=== PATIENT | female | born 1930 | race Caucasian/White ===

== ENCOUNTER 2017-09-25 15:34 | Emergency (ER) | payer MEDICARE, OTHER ==
[2017-09-25] MEDS ORDERED: Ketorolac 60 MG/2 ML SDV IM ONE (16:45)
--- NOTE | 2017-09-25 18:11 | EDM.PDOC ---
ED HPI GENERAL MEDICAL PROBLEM - General Chief Complaint: Back Pain or Injury Stated Complaint: BACK PAIN Time Seen by Provider: 09/25/17 15:59 Source of Information: Reports: Patient, Family History Limitations: Reports: No Limitations - History of Present Illness INITIAL COMMENTS - FREE TEXT/NARRATIVE: HISTORY AND PHYSICAL: []86-year-old female presenting with increased lower back pain History of Present Illness: []Has chronic history of back pain and spondylolisthesis The pain has worsened over the last 2 days having difficulty standing Denies any difficulty with voiding or bowel movements Review of Systems: As per history of present illness and below otherwise all systems reviewed and negative. Past medical history: As per history of present illness and as reviewed below otherwise noncontributory. Surgical history: As per history of present illness and as reviewed below otherwise noncontributory. Social history: No reported history of drug or alcohol abuse. Family history: As per history of present illness and as reviewed below otherwise noncontributory. Physical exam: Alert elderly female who is very pleasant and oriented. Speaking in full sentences without any shortness of breath pain is at the L4-5 HEENT: Atraumatic, normocehpalic, pupils reactive, negative for conjunctival pallor or scleral icterus, mucous membranes moist, throat clear, neck supple, nontender, trachea midline. Lungs: Clear to auscultation, breath sounds equal bilaterally, chest non tender. No step-offs noted Heart: S1S2, regular, negative for clicks, rubs, or JVD. Abdomen: Soft, nondistended, nontender. Negative for masses or hepatossplenmegaly. Negative for costovertebral tenderness. Pelvis: Stable nontender. Genitourinary: Deferred. Rectal: Deferred Extremities: Atraumatic, negative for cords or calf pain. Neurovascular unremarkable. Neuro: Awake, alert, oriented. Cranial nerves II through XII unremarkable. Cerebellum unremarkable. Motor and sensory unremarkable throughout. Exam nonfocal. Discussed with patient and granddaughter that no acute fractures are noted Diagnostics: [X-ray lumbar spine] Therapeutics: [] Impression: []Low back pain Plan: []Discharged home Follow up with your provider as previously scheduled Prescription written for Tylenol No. 3 one 3 times daily as needed for pain #30 no refill Return to the emergency room when necessary as discussed Definitive disposition and diagnosis as appropriate pending reevaluation and review of above. Onset: Gradual Duration: Day(s): Lower Back Pain Score (Numeric/FACES): 10 - Related Data Allergies Allergy/AdvReac Type Severity Reaction Status Date / Time No Known Allergies Allergy Verified 09/25/17 15:53 Home Meds: Home Meds Esomeprazole Magnesium [Nexium] 20 mg DAILY 09/25/17 [History] FLUoxetine HCl [Fluoxetine HCl] 10 mg DAILY 09/25/17 [History] Fluticasone Propionate [Flonase Allergy Relief] 1 spray DAILY PRN 09/25/17 [ History] Levothyroxine 112 mcg DAILY 09/25/17 [History] Losartan Potassium 50 mg DAILY 09/25/17 [History] Simvastatin [Zocor] 20 mg DAILY 09/25/17 [History] aMILoride/Hydrochlorothiazide [Amiloride-HCTZ 5-50 MG] 5 - 50 mg DAILY 09/25/17 [History] cycloSPORINE [Restasis] 1 each OP DAILY 09/25/17 [History] Past Medical History HEENT History: Reports: Cataract Cardiovascular History: Reports: Angina, High Cholesterol, Hypertension Musculoskeletal History: Reports: Arthritis, Back Pain, Chronic Endocrine/Metabolic History: Reports: Hypothyroidism Oncologic (Cancer) History: Reports: Non-Hodgkin's Lymphoma - Infectious Disease History Infectious Disease History: Reports: Chicken Pox, Hepatitis A - Past Surgical History HEENT Surgical History: Reports: Cataract Surgery, Tonsillectomy GI Surgical History: Reports: Appendectomy, Cholecystectomy, Hernia, Abdominal Female Surgical History: Reports: Section, Hysterectomy, Oophorectomy Endocrine Surgical History: Reports: Other (See Below) Other Endocrine Surgeries/Procedures: partial thyroidectomy Musculoskeletal Surgical History: Reports: Hip Replacement, Knee Replacement Other Musculoskeletal Surgeries/Procedures:: L knee / R hip Social & Family History - Family History Family Medical History: Noncontributory - Tobacco Use Smoking Status *Q: Former Smoker Used Tobacco, but Quit: Yes Month/Year Tobacco Last Used: 2001 - Caffeine Use Caffeine Use: Reports: Coffee - Recreational Drug Use Recreational Drug Use: No ED ROS GENERAL - Review of Systems Review Of Systems: ROS reveals no pertinent complaints other than HPI. ED EXAM,LOWER BACK PAIN/INJURY - Physical Exam Exam: See Below (see dictation) Course - Vital Signs Last Recorded V/S: Last Vital Signs Temp 36.5 C 09/25/17 15:50 Pulse 92 09/25/17 15:50 Resp 20 09/25/17 15:50 BP 176/82 H 09/25/17 15:50 Pulse Ox 97 09/25/17 15:50 - Orders/Labs/Meds Orders: Active Orders 24 hr Category Date Time Status Lumbar Spine 2 or 3V [CR] Stat Exams 09/25/17 16:45 Taken Meds: Medications Discontinued Medications Generic Name Dose Route Start Last Admin Trade Name Amara PRN Reason Stop Dose Admin Ketorolac Tromethamine 60 mg 09/25/17 16:45 09/25/17 16:57 Toradol IM 09/25/17 16:46 60 mg ONETIME ONE Administration Departure - Departure Time of Disposition: 18:09 Disposition: Home, Self-Care 01 Condition: Good Clinical Impression: Low back pain - Discharge Information Instructions: Back Pain, Adult, [id number] Referrals: Gabriela Gutierrez DO [Primary Care Provider] - Additional Instructions: The following information is given to patients seen in the emergency department who are being discharged to home. This information is to outline your options for follow-up care. We provide all patients seen in our emergency department with a follow-up referral. The need for follow-up, as well as the timing and circumstances, are variable depending upon the specifics of your emergency department visit. If you don't have a primary care physician on staff, we will provide you with a referral. We always advise you to contact your personal physician following an emergency department visit to inform them of the circumstance of the visit and for follow-up with them and/or the need for any referrals to a consulting specialist. The emergency department will also refer you to a specialist when appropriate. This referral assures that you have the opportunity for followup care with a specialist. All of these measure are taken in an effort to provide you with optimal care, which includes your followup. Under all circumstances we always encourage you to contact your private physician who remains a resource for coordinating your care. When calling for followup care, please make the office aware that this follow-up is from your recent emergency room visit. If for any reason you are refused follow-up, please contact the [facility] emergency department at and asked to speak to the emergency department charge nurse. Follow-up with Dr. Nardozi as scheduled Prescription written for Tylenol No. 3 one 3 times a day when necessary pain # 30 no refill Return to ER for reevaluation and when necessary as discussed - My Orders Last 24 Hours: My Active Orders 09/25/17 16:45 Lumbar Spine 2 or 3V [CR] Stat - Assessment/Plan Last 24 Hours: My Active Orders 09/25/17 16:45 Lumbar Spine 2 or 3V [CR] Stat
--- NOTE | 2017-09-26 10:09 | CR ---
EXAM DATE: 09/25/17 PATIENT'S AGE: 86 Patient: SUNDAR BAUER Facility: [place], [place] Site . Site : [id number] Study: XRay Spine Lumbar [id number]/26/2018 5:29:11 PM Ordering Physician: Doctor Marvin Final Report: INDICATION: Chronic back pain TECHNIQUE: Lumbar spine 3 view COMPARISON: None FINDINGS: Bones: Alignment is normal. No fractures or significant bone lesions. There is osteoporosis. Joints: Advanced disc space narrowing is present at all levels. Moderate facet joint spondylosis is in the lower lumbar spine. Soft tissues: Aortic atherosclerosis. IMPRESSION: No acute findings. There is diffuse moderate degenerative spondylosis. Dictated by Frantz Adame MD @ Sep 25 2017 5:55PM (Electronic Signature) Report Signed by Proxy. ROGER
== END 2017-09-25 18:19 | disposition home or self-care (01) ==
LOC: MW.ED 15:34
DX: M54.5 Low back pain (principal); I10 Essential (primary) hypertension; E78.00 Pure hypercholesterolemia, unspecified; E03.9 Hypothyroidism, unspecified; Z79.899 Other long term (current) drug therapy; Z87.891 Personal history of nicotine dependence
CPT/HCPCS: 72100; 96372; 99283; J1885

== ENCOUNTER 2019-08-28 10:45 | Observation (INO) | payer MEDICARE, OTHER ==
[2019-08-28] MEDS ORDERED: Sodium Chloride 0.9% 10 ML Syringe FLUSH PRN (11:04)
[2019-08-28] MEDS ORDERED: Sodium Chloride 0.9% 2.5 ML Syringe FLUSH PRN (11:04)
[2019-08-28 11:58] LABS: BLOOD UREA NITROGEN,BUN 43 mg/dL (7.0-18.0); CARBON DIOXIDE,CO2 26.2 mmol/L (21.0-32.0); CHLORIDE,CL 106 mmol/L (98-107); GLUCOSE RANDOM 132 mg/dL (74-106); LIPASE 147 U/L (73-393); SODIUM,NA 145 mmol/L (136-145)
--- NOTE | 2019-08-28 11:59 | EDM.PDOC ---
ED HPI GENERAL MEDICAL PROBLEM - General Chief Complaint: Gastrointestinal Problem Stated Complaint: FEELS LIKE FAINTING, LG BLACK BM Time Seen by Provider: 08/28/19 11:31 Source of Information: Reports: Patient History Limitations: Reports: No Limitations - History of Present Illness INITIAL COMMENTS - FREE TEXT/NARRATIVE: This 88 year old female is admitted to the ED with a chief complaint of passing black stools this morning times 3. She denies any other complaints at this time. No chest pain, SOB or abdominal discomfort. Her last colonoscopy was more than 10 years ago. Onset: Today (Black stools since this morning times 3) Location: Reports: Other (No abdominal pain) Severity: Mild - Related Data Allergies Allergy/AdvReac Type Severity Reaction Status Date / Time No Known Allergies Allergy Verified 08/28/19 11:03 Home Meds: Home Meds Esomeprazole Magnesium [Nexium] 20 mg DAILY 09/25/17 [History] FLUoxetine HCl [Fluoxetine HCl] 10 mg DAILY 09/25/17 [History] Fluticasone Propionate [Flonase Allergy Relief] 1 spray DAILY PRN 09/25/17 [ History] Levothyroxine 112 mcg DAILY 09/25/17 [History] Simvastatin [Zocor] 20 mg DAILY 09/25/17 [History] aMILoride/Hydrochlorothiazide [Amiloride-HCTZ 5-50 MG] 5 - 50 mg PO DAILY [History] cycloSPORINE [Restasis] 1 each OP DAILY 09/25/17 [History] Acetaminophen [Tylenol Arthritis] 1,300 mg PO DAILY 08/28/19 [History] Ascorbate Calcium [Vitamin C] 1,000 mg PO DAILY 08/28/19 [History] Aspirin 81 mg PO DAILY 08/28/19 [History] Celecoxib [CeleBREX] 200 mg PO DAILY 08/28/19 [History] Cholecalciferol (Vitamin D3) [Vitamin D3] 2,000 unit PO DAILY 08/28/19 [History] Fish Oil/[place]-3 Fatty Acids [Fish Oil 1,000 MG] 1 tab PO DAILY 08/28/19 [ History] Loperamide [Imodium] 1 tab PO ASDIRECTED 08/28/19 [History] Magnesium 250 mg PO DAILY 08/28/19 [History] Mv-Mn/FA/Vit K/Lycop/Lut/Zeaxa [Ocuvite Eye + Multi Tablet] 1 tab PO DAILY 08/28 [History] Psyllium [Metamucil] 1 cap PO ASDIRECTED 08/28/19 [History] Past Medical History HEENT History: Reports: Cataract Cardiovascular History: Reports: Angina, High Cholesterol, Hypertension Respiratory History: Reports: None Gastrointestinal History: Reports: Chronic Constipation, Chronic Diarrhea, Hemorrhoids Genitourinary History: Reports: None ESCROW CLOSER History: Reports: None Musculoskeletal History: Reports: Arthritis, Back Pain, Chronic Neurological History: Reports: None Psychiatric History: Reports: Depression Endocrine/Metabolic History: Reports: Hypothyroidism Hematologic History: Reports: None Immunologic History: Reports: None Oncologic (Cancer) History: Reports: Non-Hodgkin's Lymphoma Dermatologic History: Reports: Seborrheic Dermatitis - Infectious Disease History Infectious Disease History: Reports: Chicken Pox, Hepatitis A - Past Surgical History Head Surgeries/Procedures: Reports: None HEENT Surgical History: Reports: Cataract Surgery, Tonsillectomy Cardiovascular Surgical History: Reports: None Respiratory Surgical History: Reports: None GI Surgical History: Reports: Appendectomy, Cholecystectomy, Hernia, Abdominal Female Surgical History: Reports: Section, Hysterectomy, Oophorectomy Endocrine Surgical History: Reports: Other (See Below) Other Endocrine Surgeries/Procedures: partial thyroidectomy Neurological Surgical History: Reports: None Musculoskeletal Surgical History: Reports: Hip Replacement, Knee Replacement Other Musculoskeletal Surgeries/Procedures:: L knee / R hip Oncologic Surgical History: Reports: None Dermatological Surgical History: Reports: None Social & Family History - Family History Family Medical History: Noncontributory - Tobacco Use Smoking Status *Q: Former Smoker Used Tobacco, but Quit: Yes Month/Year Tobacco Last Used: 2001 - Caffeine Use Caffeine Use: Reports: None - Recreational Drug Use Recreational Drug Use: No ED ROS GENERAL - Review of Systems Review Of Systems: See Below Constitutional: Reports: No Symptoms HEENT: Reports: No Symptoms Respiratory: Reports: No Symptoms Cardiovascular: Reports: No Symptoms Endocrine: Reports: No Symptoms GI/Abdominal: Reports: Hematemesis (passing black stools) : Reports: No Symptoms Musculoskeletal: Reports: No Symptoms Skin: Reports: No Symptoms Neurological: Reports: No Symptoms Hematologic/Lymphatic: Reports: No Symptoms ED EXAM, GI/ABD - Physical Exam Exam: See Below Exam Limited By: No Limitations General Appearance: Alert, WD/WN, No Apparent Distress Eyes: Bilateral: Normal Appearance, EOMI Ears: Normal External Exam, Normal Canal, Hearing Grossly Normal, Normal TMs Nose: Normal Inspection, Normal Mucosa, No Blood Throat/Mouth: Normal Inspection, Normal Lips, Normal Teeth, Normal Gums, Normal Oropharynx, Normal Voice, No Airway Compromise Head: Atraumatic, Normocephalic Neck: Normal Inspection, Supple, Non-Tender, Full Range of Motion Respiratory/Chest: No Respiratory Distress, Other (intestinal sounds are noted in the mid chest. She has a history of hiatal hernia) GI/Abdominal Exam: Normal Bowel Sounds, Soft, Non-Tender, No Organomegaly. No: Mass (Female) Exam: Deferred Rectal (Female) Exam: Black Stool, Heme + Stool (Heme test is grossly positive) , Hemorrhoids (external hemorrhoids noted.) Back Exam: Normal Inspection Extremities: Normal Inspection, Normal Range of Motion, No Pedal Edema Neurological: Alert, Oriented, CN II-XII Intact, Normal Cognition Psychiatric: Normal Affect, Normal Mood Skin Exam: Warm, Dry, Intact, Normal Color, No Rash Course - Vital Signs Text/Narrative:: I talked with Dr. Holden at 1:54PM. She will be admitted for GI bleed. The patient and the daughter agrees with the admission plan. Last Recorded V/S: Last Vital Signs Temp 96.8 F L 08/28/19 11:01 Pulse 115 H 08/28/19 11:01 Resp 18 08/28/19 11:01 BP 116/50 L 08/28/19 11:01 Pulse Ox 95 08/28/19 11:01 - Orders/Labs/Meds Orders: Active Orders 24 hr Category Date Time Status Cardiac Monitoring [RC] . DIRECTED Care 08/28/19 11:04 Active EKG Documentation Completion [RC] STAT Care 08/28/19 11:04 Active CULTURE URINE [RM] Stat Lab 08/28/19 13:34 Received Sodium Chloride 0.9% [Saline Flush] Med 08/28/19 11:04 Active 10 ml FLUSH ASDIRECTED PRN Sodium Chloride 0.9% [Saline Flush] Med 08/28/19 11:04 Active 2.5 ml FLUSH ASDIRECTED PRN Saline Lock Insert [OM.PC] Stat Oth 08/28/19 11:04 Ordered Medication Orders Sodium Chloride (Saline Flush) 10 ml FLUSH ASDIRECTED PRN PRN Reason: Keep Vein Open Sodium Chloride (Saline Flush) 2.5 ml FLUSH ASDIRECTED PRN PRN Reason: Keep Vein Open Labs: Laboratory Tests 08/28/19 08/28/19 08/28/19 Range/Units 11:23 11:23 13:34 WBC 9.63 (4.0-11.0) K/uL RBC 4.82 (4.30-5.90) M/uL Hgb 14.8 (12.0-16.0) g/dL Hct 46.3 H (36.0-46.0) % MCV 96.1 (80.0-98.0) fL MCH 30.7 (27.0-32.0) pg MCHC 32.0 (31.0-37.0) g/dL RDW Std Deviation 47.0 (28.0-62.0) fl RDW Coeff of Jose 13 (11.0-15.0) % Plt Count 174 (150-400) K/uL MPV 11.20 (7.40-12.00) fL Neut % (Auto) 64.2 (48.0-80.0) % Lymph % (Auto) 25.5 (16.0-40.0) % [place] % (Auto) 7.5 (0.0-15.0) % Eos % (Auto) 2.1 (0.0-7.0) % Baso % (Auto) 0.7 (0.0-1.5) % Neut # (Auto) 6.2 H (1.4-5.7) K/uL Lymph # (Auto) 2.5 H (0.6-2.4) K/uL [place] # (Auto) 0.7 (0.0-0.8) K/uL Eos # (Auto) 0.2 (0.0-0.7) K/uL Baso # (Auto) 0.1 (0.0-0.1) K/uL Nucleated RBC % 0.0 /100WBC Nucleated RBCs # 0 K/uL Sodium 145 (136-145) mmol/L Potassium 4.0 (3.5-5.1) mmol/L Chloride 106 (98-107) mmol/L Carbon Dioxide 26.2 (21.0-32.0) mmol/L BUN 43 H (7.0-18.0) mg/dL Creatinine 0.9 (0.6-1.0) mg/dL Est Cr Clr Drug Dosing 36.59 mL/min Estimated GFR (MDRD) 59.0 ml/min Glucose 132 H (74-106) mg/dL Calcium 9.4 (8.5-10.1) mg/dL Total Bilirubin 0.7 (0.2-1.0) mg/dL AST 32 (15-37) IU/L ALT 25 (14-63) IU/L Alkaline Phosphatase 76 (46-116) U/L Troponin I < 0.050 (0.000-0.056) ng/mL Total Protein 6.8 (6.4-8.2) g/dL Albumin 3.0 L (3.4-5.0) g/dL Globulin 3.8 (2.6-4.0) g/dL Albumin/Globulin Ratio 0.8 L (0.9-1.6) Lipase 147 (73-393) U/L Urine Color YELLOW Urine Appearance HAZY Urine pH 7.0 (5.0-8.0) Ur Specific [place] 1.015 (1.001-1.035) Urine Protein NEGATIVE (NEGATIVE) mg/dL Urine Glucose (UA) NEGATIVE (NEGATIVE) mg/dL Urine Ketones NEGATIVE (NEGATIVE) mg/dL Urine Occult Blood NEGATIVE (NEGATIVE) Urine Nitrite NEGATIVE (NEGATIVE) Urine Bilirubin NEGATIVE (NEGATIVE) Urine Urobilinogen 0.2 (<2.0) EU/dL Ur Leukocyte Esterase TRACE H (NEGATIVE) Urine RBC 0-3 (0-2/HPF) Urine WBC 0-5 (0-5/HPF) Ur Epithelial Cells RARE (NONE-FEW) Urine Bacteria RARE (NEGATIVE) Meds: Medications Generic Name Dose Route Start Last Admin Trade Name Freq PRN Reason Stop Dose Admin Sodium Chloride 10 ml 08/28/19 11:04 Saline Flush FLUSH ASDIRECTED PRN Keep Vein Open Sodium Chloride 2.5 ml 08/28/19 11:04 Saline Flush FLUSH ASDIRECTED PRN Keep Vein Open Discontinued Medications Generic Name Dose Route Start Last Admin Trade Name Freq PRN Reason Stop Dose Admin Iopamidol 100 ml 08/28/19 12:43 08/28/19 13:01 Isovue Multipack-370 (76%) IVPUSH 08/28/19 12:44 100 ml ONETIME STA Administration Departure - Departure Time of Disposition: 13:58 Disposition: Refer to Observation Condition: Good Clinical Impression: GI (gastrointestinal bleed) Qualifiers: GI bleed type/associated pathology: melena Qualified Code(s): K92.1 - Melena - Discharge Information *PRESCRIPTION DRUG MONITORING PROGRAM REVIEWED*: Yes *COPY OF PRESCRIPTION DRUG MONITORING REPORT IN PATIENT FERNANDA: Yes Referrals: Gabriela Gutierrez DO [Primary Care Provider] - Forms: ED Department Discharge Sepsis Event Note - Evaluation Sepsis Screening Result: No Definite Risk - Focused Exam Vital Signs: Vital Signs Temp Pulse Resp BP Pulse Ox 08/28/19 11:01 96.8 F L 115 H 18 116/50 L 95 Date Exam was Performed: 08/28/19 Time Exam was Performed: 13:56
--- NOTE | 2019-08-28 12:37 | CR ---
Chest: Portable view of the chest was obtained. Comparison: Prior chest x-ray of 11/30/11. Small to moderate sized hiatal hernia is noted. Elevated right hemidiaphragm is seen. Heart size at the upper limits normal. Tortuous thoracic aorta is seen. Lungs show no acute parenchymal change. Mild degenerative change is seen within both shoulders. Osteopenia is also present. Impression: 1. Multiple findings as noted above. 2. Nothing acute is appreciated on portable chest x-ray. Diagnostic code #2 This report was dictated in [place] Standard Time
[2019-08-28] MEDS ORDERED: Iopamidol 755 MG/ML 500 ML Multipack Bottle IVPUSH STA (12:43)
--- NOTE | 2019-08-28 13:55 | CT ---
CT abdomen and pelvis (without and with intravenous contrast) Technique: Multiple axial sections were obtained from above the dome of the diaphragm inferiorly through the pubic symphysis. Intravenous and oral contrast not utilized. Intravenous contrast then given an imaging obtained during the arterial phase. Comparison: Prior CT abdomen and pelvis exam of 11/14/07 Findings: Moderately large hiatal hernia is seen which is an interval change from prior exam. Mild interstitial fibrosis seen within both lung bases. Small area of focal fatty eventration is noted within the left hemidiaphragm. Cysts are noted within the right and left kidneys. Largest cyst measures 4.5 cm. Pancreas shows no discrete abnormality. Liver contains no focal abnormality. Spleen appears within normal limits. Gallbladder is not identified with certainty. Aorta shows atherosclerotic change with mild ectasia. No focal aneurysm is seen. Atherosclerotic change continues into the iliac vessels. Diverticuli are seen within the sigmoid colon without findings of diverticulitis. Celiac axis and superior mesenteric artery shows atherosclerotic change without significant stenosis being identified. Atherosclerotic change is noted within both renal arteries without definite focal stenosis being seen. Inferior mesenteric artery appears to be patent. Right hip prosthesis is noted. Bone window settings show scattered degenerative change throughout the spine. Impression: 1. Moderately large hiatal hernia which is an interval change from prior exam. 2. Diffuse atherosclerotic changes within the aorta and branch vessels. Mild ectasia of the distal aorta is seen. No focal stenosis seen within the branch vessels of the aorta. 3. Other findings believed to be incidental as noted above. Nothing acute appreciated on CT study the abdomen and pelvis. Diagnostic code #3 This report was dictated in [place] Standard Time delete
[2019-08-28] MEDS ORDERED: Sodium Chloride 0.9% 500 ML IV SCH (14:15)
--- NOTE | 2019-08-28 14:28 | PCM.HP.2 ---
H&P History of Present Illness - General Date of Service: 08/28/19 Admit Problem/Dx: Admission Diagnosis/Problem Admission Diagnosis/Problem GI bleed not requiring more than 4 units of blood in 24 hours, ICU, or surgery - History of Present Illness Initial Comments - Free Text/Narative: 88 y/ female with history of chronic back pain, hypertension who presented to the ER after she noticed black stool this morning. Patient states she has never had a black stool before. She does have a history of external hemorrhoids. States that she had been constipated for the past few days. Not taking any iron tables. Has been feeling more tired than usual. Denies any hematemesis, vomiting , diarrhea. She does endorse taking tylenol and other pain medication on daily basis for years now. Last colonoscopy was about 5 years ago. In the ER, CT abdomen/pelvis showed a large hiatal hernia and diverticuli without signs of acute flare-up. Digital rectal exam was heme positive per ER. Hg 14. - Related Data Allergies/Adverse Reactions: Allergies Allergy/AdvReac Type Severity Reaction Status Date / Time No Known Allergies Allergy Verified 08/28/19 11:03 Home Medications: Home Meds Esomeprazole Magnesium [Nexium] 20 mg DAILY 09/25/17 [History] FLUoxetine HCl [Fluoxetine HCl] 10 mg DAILY 09/25/17 [History] Fluticasone Propionate [Flonase Allergy Relief] 1 spray DAILY PRN 09/25/17 [ History] Levothyroxine 112 mcg DAILY 09/25/17 [History] Simvastatin [Zocor] 20 mg DAILY 09/25/17 [History] aMILoride/Hydrochlorothiazide [Amiloride-HCTZ 5-50 MG] 5 - 50 mg PO DAILY [History] cycloSPORINE [Restasis] 1 each OP DAILY 09/25/17 [History] Acetaminophen [Tylenol Arthritis] 1,300 mg PO DAILY 08/28/19 [History] Ascorbate Calcium [Vitamin C] 1,000 mg PO DAILY 08/28/19 [History] Aspirin 81 mg PO DAILY 08/28/19 [History] Celecoxib [CeleBREX] 200 mg PO DAILY 08/28/19 [History] Cholecalciferol (Vitamin D3) [Vitamin D3] 2,000 unit PO DAILY 08/28/19 [History] Fish Oil/Adamant-3 Fatty Acids [Fish Oil 1,000 MG] 1 tab PO DAILY 08/28/19 [ History] Loperamide [Imodium] 1 tab PO ASDIRECTED 08/28/19 [History] Magnesium 250 mg PO DAILY 08/28/19 [History] Mv-Mn/FA/Vit K/Lycop/Lut/Zeaxa [Ocuvite Eye + Multi Tablet] 1 tab PO DAILY 08/28 [History] Psyllium [Metamucil] 1 cap PO ASDIRECTED 08/28/19 [History] Past Medical History HEENT History: Reports: Cataract Cardiovascular History: Reports: Angina, High Cholesterol, Hypertension Respiratory History: Reports: None Gastrointestinal History: Reports: Chronic Constipation, Chronic Diarrhea, Hemorrhoids Genitourinary History: Reports: None [employer] History: Reports: None Musculoskeletal History: Reports: Arthritis, Back Pain, Chronic Neurological History: Reports: None Psychiatric History: Reports: Depression Endocrine/Metabolic History: Reports: Hypothyroidism Hematologic History: Reports: None Immunologic History: Reports: None Oncologic (Cancer) History: Reports: Non-Hodgkin's Lymphoma Dermatologic History: Reports: Seborrheic Dermatitis - Infectious Disease History Infectious Disease History: Reports: Chicken Pox, Hepatitis A - Past Surgical History Head Surgeries/Procedures: Reports: None HEENT Surgical History: Reports: Cataract Surgery, Tonsillectomy Cardiovascular Surgical History: Reports: None Respiratory Surgical History: Reports: None GI Surgical History: Reports: Appendectomy, Cholecystectomy, Hernia, Abdominal Female Surgical History: Reports: Section, Hysterectomy, Oophorectomy Endocrine Surgical History: Reports: Other (See Below) Other Endocrine Surgeries/Procedures: partial thyroidectomy Neurological Surgical History: Reports: None Musculoskeletal Surgical History: Reports: Hip Replacement, Knee Replacement Other Musculoskeletal Surgeries/Procedures:: L knee / R hip Oncologic Surgical History: Reports: None Dermatological Surgical History: Reports: None Social & Family History - Family History Family Medical History: Noncontributory - Tobacco Use Smoking Status *Q: Former Smoker Used Tobacco, but Quit: Yes Month/Year Tobacco Last Used: 2001 - Caffeine Use Caffeine Use: Reports: None - Recreational Drug Use Recreational Drug Use: No H&P Review of Systems - Review of Systems: Review Of Systems: Comprehensive ROS is negative, except as noted in HPI. Exam - Exam Exam: See Below - Vital Signs Vital Signs: Last Vital Signs Temp 36.0 C L 08/28/19 11:01 Pulse 115 H 08/28/19 11:01 Resp 18 08/28/19 11:01 BP 116/50 L 08/28/19 11:01 Pulse Ox 95 08/28/19 11:01 Weight: 98 kg - Exam General: Alert, Oriented, Cooperative HEENT: Other (dry oral mucosa) Lungs: Clear to Auscultation, Normal Respiratory Effort, Decreased Breath Sounds. No: Crackles, Wheezing Cardiovascular: Regular Rhythm, Tachycardia GI/Abdominal Exam: Normal Bowel Sounds, Soft, Non-Tender, No Distention Extremities: Normal Inspection, Pedal Edema Skin: Warm, Dry - Patient Data Lab Results Last 24 hrs: Laboratory Results - last 24 hr 08/28/19 08/28/19 08/28/19 Range/Units 11:23 11:23 13:34 WBC 9.63 (4.0-11.0) K/uL RBC 4.82 (4.30-5.90) M/uL Hgb 14.8 (12.0-16.0) g/dL Hct 46.3 H (36.0-46.0) % MCV 96.1 (80.0-98.0) fL MCH 30.7 (27.0-32.0) pg MCHC 32.0 (31.0-37.0) g/dL RDW Std Deviation 47.0 (28.0-62.0) fl RDW Coeff of Jose 13 (11.0-15.0) % Plt Count 174 (150-400) K/uL MPV 11.20 (7.40-12.00) fL Neut % (Auto) 64.2 (48.0-80.0) % Lymph % (Auto) 25.5 (16.0-40.0) % [place] % (Auto) 7.5 (0.0-15.0) % Eos % (Auto) 2.1 (0.0-7.0) % Baso % (Auto) 0.7 (0.0-1.5) % Neut # (Auto) 6.2 H (1.4-5.7) K/uL Lymph # (Auto) 2.5 H (0.6-2.4) K/uL [place] # (Auto) 0.7 (0.0-0.8) K/uL Eos # (Auto) 0.2 (0.0-0.7) K/uL Baso # (Auto) 0.1 (0.0-0.1) K/uL Nucleated RBC % 0.0 /100WBC Nucleated RBCs # 0 K/uL Sodium 145 (136-145) mmol/L Potassium 4.0 (3.5-5.1) mmol/L Chloride 106 (98-107) mmol/L Carbon Dioxide 26.2 (21.0-32.0) mmol/L BUN 43 H (7.0-18.0) mg/dL Creatinine 0.9 (0.6-1.0) mg/dL Est Cr Clr Drug Dosing 36.59 mL/min Estimated GFR (MDRD) 59.0 ml/min Glucose 132 H (74-106) mg/dL Calcium 9.4 (8.5-10.1) mg/dL Total Bilirubin 0.7 (0.2-1.0) mg/dL AST 32 (15-37) IU/L ALT 25 (14-63) IU/L Alkaline Phosphatase 76 (46-116) U/L Troponin I < 0.050 (0.000-0.056) ng/mL Total Protein 6.8 (6.4-8.2) g/dL Albumin 3.0 L (3.4-5.0) g/dL Globulin 3.8 (2.6-4.0) g/dL Albumin/Globulin Ratio 0.8 L (0.9-1.6) Lipase 147 (73-393) U/L Urine Color YELLOW Urine Appearance HAZY Urine pH 7.0 (5.0-8.0) Ur Specific [place] 1.015 (1.001-1.035) Urine Protein NEGATIVE (NEGATIVE) mg/dL Urine Glucose (UA) NEGATIVE (NEGATIVE) mg/dL Urine Ketones NEGATIVE (NEGATIVE) mg/dL Urine Occult Blood NEGATIVE (NEGATIVE) Urine Nitrite NEGATIVE (NEGATIVE) Urine Bilirubin NEGATIVE (NEGATIVE) Urine Urobilinogen 0.2 (<2.0) EU/dL Ur Leukocyte Esterase TRACE H (NEGATIVE) Urine RBC 0-3 (0-2/HPF) Urine WBC 0-5 (0-5/HPF) Ur Epithelial Cells RARE (NONE-FEW) Urine Bacteria RARE (NEGATIVE) Result Diagrams: 08/28/19 11:23 08/28/19 11:23 Sepsis Event Note - Evaluation Sepsis Screening Result: No Definite Risk - Focused Exam Vital Signs: Vital Signs Temp Pulse Resp BP Pulse Ox 08/28/19 11:01 36.0 C L 115 H 18 116/50 L 95 Date Exam was Performed: 08/28/19 Time Exam was Performed: 14:31 Problem List Initiated/Reviewed/Updated: Yes Orders Last 24hrs: Active Orders 24 hr Category Date Time Status Admission Status [Patient Status] [ADT] Stat ADT 08/28/19 13:59 Active Antiembolic Devices [RC] PER UNIT ROUTINE Care 08/28/19 14:22 Active Cardiac Monitoring [RC] . DIRECTED Care 08/28/19 11:04 Active EKG Documentation Completion [RC] STAT Care 08/28/19 11:04 Active Intake and Output [RC] QSHIFT Care 08/28/19 14:21 Active Oxygen Therapy [RC] PRN Care 08/28/19 14:21 Active Up With Assistance [RC] ASDIRECTED Care 08/28/19 14:21 Active VTE/DVT Education [RC] PER UNIT ROUTINE Care 08/28/19 14:21 Active Vital Signs [RC] Q4H Care 08/28/19 14:21 Active Nothing per Oral Now Diet [DIET] Diet 08/28/19 Lunch Active CBC WITH AUTO DIFF [HEME] AM Lab 08/29/19 05:11 Ordered CBC WITH AUTO DIFF [HEME] AM Lab 08/30/19 05:11 Ordered CBC WITH AUTO DIFF [HEME] AM Lab 08/31/19 05:11 Ordered COMPREHENSIVE METABOLIC PN,CMP [CHEM] AM Lab 08/29/19 05:11 Ordered COMPREHENSIVE METABOLIC PN,CMP [CHEM] AM Lab 08/30/19 05:11 Ordered COMPREHENSIVE METABOLIC PN,CMP [CHEM] AM Lab 08/31/19 05:11 Ordered CULTURE URINE [RM] Stat Lab 08/28/19 13:34 Received HEMOGLOBIN/HEMATOCRIT,HH [HEME] Q6H Lab 08/28/19 17:00 Ordered HEMOGLOBIN/HEMATOCRIT,HH [HEME] Q6H Lab 08/28/19 23:00 Ordered HEMOGLOBIN/HEMATOCRIT,HH [HEME] Q6H Lab 08/29/19 05:00 Ordered HEMOGLOBIN/HEMATOCRIT,HH [HEME] Q6H Lab 08/29/19 11:00 Ordered TYPE AND SCREEN [BBK] Stat Lab 08/28/19 14:07 Ordered Lactated Ringers [Ringers, Lactated] 1,000 ml Med 08/28/19 14:30 Active IV ASDIRECTED Pantoprazole [ProTONIX IV] Med 08/28/19 21:00 Active 40 mg IV Q12HR Sodium Chloride 0.9% [Normal Saline] 500 ml Med 08/28/19 14:15 Active IV ASDIRECTED Sodium Chloride 0.9% [Saline Flush] Med 08/28/19 11:04 Active 10 ml FLUSH ASDIRECTED PRN Sodium Chloride 0.9% [Saline Flush] Med 08/28/19 11:04 Active 2.5 ml FLUSH ASDIRECTED PRN Saline Lock Insert [OM.PC] Stat Ot 08/28/19 11:04 Ordered Sequential Compression Device [OM.PC] Per Unit Routine Ot 08/28/19 14:21 Ordered Resuscitation Status Routine Resus Stat 08/28/19 14:21 Ordered Medication Orders Sodium Chloride (Normal Saline) 500 mls @ 500 mls/hr IV ASDIRECTED ELENITA Lactated Ringer's (Ringers, Lactated) 1,000 mls @ 150 mls/hr IV ASDIRECTED ELENITA Pantoprazole Sodium (Protonix Iv) 40 mg IV Q12HR ELENITA Sodium Chloride (Saline Flush) 10 ml FLUSH ASDIRECTED PRN PRN Reason: Keep Vein Open Sodium Chloride (Saline Flush) 2.5 ml FLUSH ASDIRECTED PRN PRN Reason: Keep Vein Open Assessment/Plan Comment:: A: 1. Acute GI bleed 2. PMH Hypertension, hypothyroidism, back pain P: 1. Will check H/H q6H. Type and screen. maintenance fluids LR 500 ml/hr. NPO except sips of water. Patient would like to aggressive intervention at this time like upper or lower endoscopies. Will monitor H/H and then reassess. Continue Protoxin 40 mg IV Q12. Stool occult. Hold home meds for now. dispo: 1-2 days.
[2019-08-28] MEDS: Lactated Ringers 1,000 ML IV SCH (17:41)
[2019-08-28] MEDS ORDERED: Pantoprazole 40 MG Vial IV SCH (21:00)
[2019-08-29] MEDS: Lactated Ringers 1,000 ML IV SCH (00:24)
[2019-08-29 07:05] LABS: BLOOD UREA NITROGEN,BUN 40 mg/dL (7.0-18.0); CARBON DIOXIDE,CO2 29.6 mmol/L (21.0-32.0); CHLORIDE,CL 111 mmol/L (98-107); GLUCOSE RANDOM 80 mg/dL (74-106); POTASSIUM,K 4.2 mmol/L (3.5-5.1); SODIUM,NA 147 mmol/L (136-145)
[2019-08-29] MEDS ORDERED: Docusate Sodium 100 MG Cap PO PRN (08:36)
[2019-08-29] MEDS ORDERED: Polyethylene Glycol 3350 Powder 17 GM Packet PO PRN (08:36)
[2019-08-29] MEDS ORDERED: Pantoprazole 40 MG Vial ONE (08:54)
[2019-08-29] MEDS ORDERED: Levothyroxine 112 MCG Tab ONE (08:54)
[2019-08-29] MEDS: Pantoprazole 40 MG in Sodium Chloride 0.9% 10 ML IV SCH ×2 (08:59→22:23)
[2019-08-29] MEDS ORDERED: Levothyroxine 112 MCG Tab PO SCH (09:00)
[2019-08-29] MEDS: Levothyroxine 112 MCG Tab PO SCH (10:47)
--- NOTE | 2019-08-29 10:59 | PCM.PN ---
- General Info Date of Service: 08/29/19 Subjective Update: no acute events overnight. H/H stable. - Patient Data Vitals - Most Recent: Last Vital Signs Temp 36.8 C 08/29/19 08:00 Pulse 80 08/29/19 08:00 Resp 20 08/29/19 08:00 BP 141/70 H 08/29/19 08:00 Pulse Ox 94 L 08/29/19 08:00 Weight - Most Recent: 87.634 kg I&O - Last 24 Hours: Intake & Output 08/28/19 08/29/19 08/29/19 22:59 06:59 14:59 Intake Total 0 2150 Output Total 0 950 Balance 0 1200 Lab Results Last 24 Hours: Laboratory Results - last 24 hr 08/28/19 08/28/19 08/28/19 Range/Units 11:23 11:23 13:34 WBC 9.63 (4.0-11.0) K/uL RBC 4.82 (4.30-5.90) M/uL Hgb 14.8 (12.0-16.0) g/dL Hct 46.3 H (36.0-46.0) % MCV 96.1 (80.0-98.0) fL MCH 30.7 (27.0-32.0) pg MCHC 32.0 (31.0-37.0) g/dL RDW Std Deviation 47.0 (28.0-62.0) fl RDW Coeff of Jose 13 (11.0-15.0) % Plt Count 174 (150-400) K/uL MPV 11.20 (7.40-12.00) fL Neut % (Auto) 64.2 (48.0-80.0) % Lymph % (Auto) 25.5 (16.0-40.0) % [place] % (Auto) 7.5 (0.0-15.0) % Eos % (Auto) 2.1 (0.0-7.0) % Baso % (Auto) 0.7 (0.0-1.5) % Neut # (Auto) 6.2 H (1.4-5.7) K/uL Lymph # (Auto) 2.5 H (0.6-2.4) K/uL [place] # (Auto) 0.7 (0.0-0.8) K/uL Eos # (Auto) 0.2 (0.0-0.7) K/uL Baso # (Auto) 0.1 (0.0-0.1) K/uL Nucleated RBC % 0.0 /100WBC Nucleated RBCs # 0 K/uL Sodium 145 (136-145) mmol/L Potassium 4.0 (3.5-5.1) mmol/L Chloride 106 (98-107) mmol/L Carbon Dioxide 26.2 (21.0-32.0) mmol/L BUN 43 H (7.0-18.0) mg/dL Creatinine 0.9 (0.6-1.0) mg/dL Est Cr Clr Drug Dosing 36.59 mL/min Estimated GFR (MDRD) 59.0 ml/min Glucose 132 H (74-106) mg/dL Calcium 9.4 (8.5-10.1) mg/dL Total Bilirubin 0.7 (0.2-1.0) mg/dL AST 32 (15-37) IU/L ALT 25 (14-63) IU/L Alkaline Phosphatase 76 (46-116) U/L Troponin I < 0.050 (0.000-0.056) ng/mL Total Protein 6.8 (6.4-8.2) g/dL Albumin 3.0 L (3.4-5.0) g/dL Globulin 3.8 (2.6-4.0) g/dL Albumin/Globulin Ratio 0.8 L (0.9-1.6) Lipase 147 (73-393) U/L Urine Color YELLOW Urine Appearance HAZY Urine pH 7.0 (5.0-8.0) Ur Specific [place] 1.015 (1.001-1.035) Urine Protein NEGATIVE (NEGATIVE) mg/dL Urine Glucose (UA) NEGATIVE (NEGATIVE) mg/dL Urine Ketones NEGATIVE (NEGATIVE) mg/dL Urine Occult Blood NEGATIVE (NEGATIVE) Urine Nitrite NEGATIVE (NEGATIVE) Urine Bilirubin NEGATIVE (NEGATIVE) Urine Urobilinogen 0.2 (<2.0) EU/dL Ur Leukocyte Esterase TRACE H (NEGATIVE) Urine RBC 0-3 (0-2/HPF) Urine WBC 0-5 (0-5/HPF) Ur Epithelial Cells RARE (NONE-FEW) Urine Bacteria RARE (NEGATIVE) Blood Type Antibody Screen 08/28/19 08/28/19 08/28/19 Range/Units 14:25 17:12 22:48 WBC (4.0-11.0) K/uL RBC (4.30-5.90) M/uL Hgb 13.2 12.2 (12.0-16.0) g/dL Hct 40.6 37.2 (36.0-46.0) % MCV (80.0-98.0) fL MCH (27.0-32.0) pg MCHC (31.0-37.0) g/dL RDW Std Deviation (28.0-62.0) fl RDW Coeff of Jose (11.0-15.0) % Plt Count (150-400) K/uL MPV (7.40-12.00) fL Neut % (Auto) (48.0-80.0) % Lymph % (Auto) (16.0-40.0) % [place] % (Auto) (0.0-15.0) % Eos % (Auto) (0.0-7.0) % Baso % (Auto) (0.0-1.5) % Neut # (Auto) (1.4-5.7) K/uL Lymph # (Auto) (0.6-2.4) K/uL [place] # (Auto) (0.0-0.8) K/uL Eos # (Auto) (0.0-0.7) K/uL Baso # (Auto) (0.0-0.1) K/uL Nucleated RBC % /100WBC Nucleated RBCs # K/uL Sodium (136-145) mmol/L Potassium (3.5-5.1) mmol/L Chloride (98-107) mmol/L Carbon Dioxide (21.0-32.0) mmol/L BUN (7.0-18.0) mg/dL Creatinine (0.6-1.0) mg/dL Est Cr Clr Drug Dosing mL/min Estimated GFR (MDRD) ml/min Glucose (74-106) mg/dL Calcium (8.5-10.1) mg/dL Total Bilirubin (0.2-1.0) mg/dL AST (15-37) IU/L ALT (14-63) IU/L Alkaline Phosphatase (46-116) U/L Troponin I (0.000-0.056) ng/mL Total Protein (6.4-8.2) g/dL Albumin (3.4-5.0) g/dL Globulin (2.6-4.0) g/dL Albumin/Globulin Ratio (0.9-1.6) Lipase (73-393) U/L Urine Color Urine Appearance Urine pH (5.0-8.0) Ur Specific [place] (1.001-1.035) Urine Protein (NEGATIVE) mg/dL Urine Glucose (UA) (NEGATIVE) mg/dL Urine Ketones (NEGATIVE) mg/dL Urine Occult Blood (NEGATIVE) Urine Nitrite (NEGATIVE) Urine Bilirubin (NEGATIVE) Urine Urobilinogen (<2.0) EU/dL Ur Leukocyte Esterase (NEGATIVE) Urine RBC (0-2/HPF) Urine WBC (0-5/HPF) Ur Epithelial Cells (NONE-FEW) Urine Bacteria (NEGATIVE) Blood Type O POSITIVE Antibody Screen NEGATIVE 08/29/19 08/29/19 Range/Units 06:19 06:19 WBC 10.21 (4.0-11.0) K/uL RBC 3.95 L (4.30-5.90) M/uL Hgb 12.0 (12.0-16.0) g/dL Hct 37.2 (36.0-46.0) % MCV 94.2 (80.0-98.0) fL MCH 30.4 (27.0-32.0) pg MCHC 32.3 (31.0-37.0) g/dL RDW Std Deviation 46.3 (28.0-62.0) fl RDW Coeff of Jose 13 (11.0-15.0) % Plt Count 149 L (150-400) K/uL MPV 11.60 (7.40-12.00) fL Neut % (Auto) 59.6 (48.0-80.0) % Lymph % (Auto) 24.1 (16.0-40.0) % [place] % (Auto) 13.1 (0.0-15.0) % Eos % (Auto) 2.6 (0.0-7.0) % Baso % (Auto) 0.6 (0.0-1.5) % Neut # (Auto) 6.1 H (1.4-5.7) K/uL Lymph # (Auto) 2.5 H (0.6-2.4) K/uL [place] # (Auto) 1.3 H (0.0-0.8) K/uL Eos # (Auto) 0.3 (0.0-0.7) K/uL Baso # (Auto) 0.1 (0.0-0.1) K/uL Nucleated RBC % 0.0 /100WBC Nucleated RBCs # 0 K/uL Sodium 147 H (136-145) mmol/L Potassium 4.2 (3.5-5.1) mmol/L Chloride 111 H (98-107) mmol/L Carbon Dioxide 29.6 (21.0-32.0) mmol/L BUN 40 H (7.0-18.0) mg/dL Creatinine 0.7 (0.6-1.0) mg/dL Est Cr Clr Drug Dosing 47.05 mL/min Estimated GFR (MDRD) > 60.0 ml/min Glucose 80 (74-106) mg/dL Calcium 8.7 (8.5-10.1) mg/dL Total Bilirubin 0.5 (0.2-1.0) mg/dL AST 26 (15-37) IU/L ALT 20 (14-63) IU/L Alkaline Phosphatase 51 (46-116) U/L Troponin I (0.000-0.056) ng/mL Total Protein 5.4 L (6.4-8.2) g/dL Albumin 2.5 L (3.4-5.0) g/dL Globulin 2.9 (2.6-4.0) g/dL Albumin/Globulin Ratio 0.9 (0.9-1.6) Lipase (73-393) U/L Urine Color Urine Appearance Urine pH (5.0-8.0) Ur Specific [place] (1.001-1.035) Urine Protein (NEGATIVE) mg/dL Urine Glucose (UA) (NEGATIVE) mg/dL Urine Ketones (NEGATIVE) mg/dL Urine Occult Blood (NEGATIVE) Urine Nitrite (NEGATIVE) Urine Bilirubin (NEGATIVE) Urine Urobilinogen (<2.0) EU/dL Ur Leukocyte Esterase (NEGATIVE) Urine RBC (0-2/HPF) Urine WBC (0-5/HPF) Ur Epithelial Cells (NONE-FEW) Urine Bacteria (NEGATIVE) Blood Type Antibody Screen Med Orders - Current: Current Medications Fluoxetine HCl (Prozac) 10 mg PO DAILY [facility] Last Admin: 08/29/19 08:59 Dose: 10 mg Sodium Chloride (Normal Saline) 500 mls @ 500 mls/hr IV ASDIRECTED ELENITA Last Admin: 08/28/19 16:22 Dose: 500 mls/hr Pantoprazole Sodium 40 mg/ (Sodium Chloride) 10 mls @ 300 mls/hr IV Q12H [facility] Last Admin: 08/29/19 08:59 Dose: 300 mls/hr Levothyroxine Sodium (Levothyroxine) 112 mcg PO Q24H [facility] Last Admin: 08/29/19 10:47 Dose: Not Given Sodium Chloride (Saline Flush) 10 ml FLUSH ASDIRECTED PRN PRN Reason: Keep Vein Open Sodium Chloride (Saline Flush) 2.5 ml FLUSH ASDIRECTED PRN PRN Reason: Keep Vein Open Sucralfate (Carafate) 1 gm PO QIDACANDBED [facility] Discontinued Medications Docusate Sodium (Colace) 100 mg PO DAILY PRN PRN Reason: Constipation Fluoxetine HCl (Prozac) Confirm Administered Dose 10 mg .ROUTE .STK-MED ONE Stop: 08/29/19 08:55 Last Admin: 08/29/19 09:33 Dose: Not Given Lactated Ringer's (Ringers, Lactated) 1,000 mls @ 75 mls/hr IV ASDIRECTED [facility] Last Admin: 08/29/19 00:24 Dose: 75 mls/hr Iopamidol (Isovue Multipack-370 (76%)) 100 ml IVPUSH ONETIME STA Stop: 08/28/19 12:44 Last Admin: 08/28/19 13:01 Dose: 100 ml Levothyroxine Sodium (Levothyroxine) 112 mcg PO DAILY [facility] Last Admin: 08/29/19 08:59 Dose: 112 mcg Levothyroxine Sodium (Levothyroxine) Confirm Administered Dose 112 mcg .ROUTE .STK-MED ONE Stop: 08/29/19 08:55 Last Admin: 08/29/19 09:32 Dose: Not Given Pantoprazole Sodium (Protonix Iv) 40 mg IV Q12HR [facility] Last Admin: 08/28/19 20:37 Dose: 40 mg Pantoprazole Sodium (Protonix Iv) Confirm Administered Dose 40 mg .ROUTE .STK -MED ONE Stop: 08/29/19 08:55 Last Admin: 08/29/19 09:33 Dose: Not Given Polyethylene Glycol (Miralax) 17 gm PO DAILY PRN PRN Reason: Constipation - Exam General: Alert, Oriented, Cooperative, No Acute Distress Lungs: Clear to Auscultation, Normal Respiratory Effort. No: Crackles, Wheezing Cardiovascular: Regular Rate, Regular Rhythm GI/Abdominal Exam: Normal Bowel Sounds, Soft, Non-Tender, No Distention Extremities: Normal Inspection, No Pedal Edema Skin: Warm, Dry Sepsis Event Note - Evaluation Sepsis Screening Result: No Definite Risk - Focused Exam Vital Signs: Vital Signs Temp Pulse Resp BP BP Pulse Ox 08/29/19 08:00 36.8 C 80 20 141/70 H 94 L 08/29/19 04:30 36.4 C 72 20 171/70 H 96 08/28/19 23:23 36.7 C 97 20 120/56 L 96 08/28/19 23:19 36.6 C 71 14 151/66 H 93 L Date Exam was Performed: 08/29/19 Time Exam was Performed: 11:34 - Problem List Review Problem List Initiated/Reviewed/Updated: Yes - My Orders Last 24 Hours: My Active Orders 08/28/19 14:21 Intake and Output [RC] QSHIFT Oxygen Therapy [RC] PRN Up With Assistance [RC] ASDIRECTED VTE/DVT Education [RC] PER UNIT ROUTINE Vital Signs [RC] Q4H Sequential Compression Device [OM.PC] Per Unit Routine Resuscitation Status Routine 08/28/19 14:22 Antiembolic Devices [RC] PER UNIT ROUTINE 08/28/19 16:27 OCCULT BLOOD DIAGNOSTIC [OP] Routine 08/28/19 Dinner Regular Diet [DIET] 08/29/19 07:00 Levothyroxine 112 mcg PO Q24H 08/29/19 09:00 FLUoxetine [PROzac] 10 mg PO DAILY 08/30/19 05:11 CBC WITH AUTO DIFF [HEME] AM COMPREHENSIVE METABOLIC PN,CMP [CHEM] AM 08/31/19 05:11 CBC WITH AUTO DIFF [HEME] AM COMPREHENSIVE METABOLIC PN,CMP [CHEM] AM - Plan Plan:: A: 1. Acute GI bleed 2. PMH Hypertension, hypothyroidism, back pain P: 1. Will recheck H/H later this afternoon. Will add carafate. Will resume blood pressure meds. dispo: 1-2 days.
[2019-08-29] MEDS ORDERED: AMILORIDE PO SCH (11:45)
[2019-08-29] MEDS ORDERED: HYDROCHLOROTHIAZIDE PO SCH (11:45)
[2019-08-29] MEDS: Sucralfate Suspension 1 GM/10 ML Cup PO SCH ×3 (12:17→22:20)
[2019-08-29] MEDS: AMILORIDE PO SCH (12:49)
[2019-08-29] MEDS: HYDROCHLOROTHIAZIDE PO SCH (12:49)
[2019-08-30 06:47] LABS: BLOOD UREA NITROGEN,BUN 21 mg/dL (7.0-18.0); CARBON DIOXIDE,CO2 30.6 mmol/L (21.0-32.0); CHLORIDE,CL 108 mmol/L (98-107); GLUCOSE RANDOM 88 mg/dL (74-106); SODIUM,NA 144 mmol/L (136-145)
[2019-08-30] MEDS: Sucralfate Suspension 1 GM/10 ML Cup PO SCH ×2 (07:25→12:12)
[2019-08-30] MEDS: Levothyroxine 112 MCG Tab PO SCH (07:27)
[2019-08-30] MEDS: Pantoprazole 40 MG in Sodium Chloride 0.9% 10 ML IV SCH (09:01)
[2019-08-30] MEDS: HYDROCHLOROTHIAZIDE PO SCH (09:14)
[2019-08-30] MEDS: AMILORIDE PO SCH (09:14)
--- NOTE | 2019-08-30 11:13 | PCM.DCSUM1 ---
<Fransico Gann - Last Filed: 08/30/19 18:26> Discharge Summary - Hospital Course Free Text/Narrative:: 88 y/o female who presented to the ER complaining of black stools. Admitted for suspected GI bleed. Heme positive stool done in the ER. Initial Hg 13. She was started on Protonix 40 mg IV Q12, carafate. H/H was trended and remained stable. She remained hemodynamically stable during this hospitalization. General surgery was not consulted since patient wanted conservative management. At time of discharge her Hg 11. She was advised to continue with omeprazole at home and was prescribed Carafate for 5 days. In addition, she was advised to discontinue taking Celebrex and other NSAIDs. She was provided a referral to general surgery in case she wanted to follow-up with them for possible upper and lower endoscopies. - Discharge Data Discharge Date: 08/30/19 Discharge Disposition: Home, Self-Care 01 Condition: Good - Referral to Home Health Primary Care Physician: Gabriela Gutierrez, DO - Patient Instructions Diet: Regular Diet as Tolerated, Drink 8-10+ Glasses/Day Activity: As Tolerated Notify Provider of: Fever, Increased Pain, Swelling and Redness, Nausea and/or Vomiting - Discharge Plan *PRESCRIPTION DRUG MONITORING PROGRAM REVIEWED*: Yes *COPY OF PRESCRIPTION DRUG MONITORING REPORT IN PATIENT FERNANDA: Yes Prescriptions/Med Rec: Sucralfate [Carafate] 1 gm PO TIDAC 5 Days #15 tablet Home Medications: Home Meds Esomeprazole Magnesium [Nexium] 20 mg DAILY 09/25/17 [History] FLUoxetine HCl [Fluoxetine HCl] 10 mg DAILY 09/25/17 [History] Fluticasone Propionate [Flonase Allergy Relief] 1 spray DAILY PRN 09/25/17 [ History] Levothyroxine 112 mcg DAILY 09/25/17 [History] Simvastatin [Zocor] 20 mg DAILY 09/25/17 [History] aMILoride/Hydrochlorothiazide [Amiloride-HCTZ 5-50 MG] 5 - 50 mg PO DAILY [History] cycloSPORINE [Restasis] 1 each OP DAILY 09/25/17 [History] Acetaminophen [Tylenol Arthritis] 1,300 mg PO DAILY 08/28/19 [History] Ascorbate Calcium [Vitamin C] 1,000 mg PO DAILY 08/28/19 [History] Aspirin 81 mg PO DAILY 08/28/19 [History] Cholecalciferol (Vitamin D3) [Vitamin D3] 2,000 unit PO DAILY 08/28/19 [History] Fish Oil/[place]-3 Fatty Acids [Fish Oil 1,000 MG] 1 tab PO DAILY 08/28/19 [ History] Loperamide [Imodium] 1 tab PO ASDIRECTED PRN 08/28/19 [History] Magnesium 250 mg PO DAILY 08/28/19 [History] Mv-Mn/FA/Vit K/Lycop/Lut/Zeaxa [Ocuvite Eye + Multi Tablet] 1 tab PO DAILY 08/28 [History] Psyllium [Metamucil] 1 cap PO ASDIRECTED 08/28/19 [History] Sucralfate [Carafate] 1 gm PO TIDAC 5 Days #15 tablet 08/30/19 [Rx] Patient Handouts: Sucralfate tablets, Gastrointestinal Bleeding, [id number] Referrals: [facility] [Outside] Gabriela Gutierrez DO [Primary Care Provider] - 09/16/19 10:30 am - Discharge Summary/Plan Comment DC Time >30 min.: No - Patient Data Vitals - Most Recent: Last Vital Signs Temp 36.2 C 08/30/19 07:00 Pulse 68 08/30/19 07:00 Resp 16 08/30/19 07:00 BP 143/61 H 08/30/19 07:00 Pulse Ox 93 L 08/30/19 07:00 Weight - Most Recent: 87.634 kg I&O - Last 24 hours: Intake & Output 08/29/19 08/30/19 08/30/19 22:59 06:59 14:59 Intake Total 450 300 Output Total 600 450 Balance -150 -150 Lab Results - Last 24 hrs: Laboratory Results - last 24 hr 08/29/19 08/30/19 08/30/19 Range/Units 16:12 06:20 06:20 WBC 6.74 (4.0-11.0) K/uL RBC 3.72 L (4.30-5.90) M/uL Hgb 12.3 11.1 L (12.0-16.0) g/dL Hct 37.9 35.0 L (36.0-46.0) % MCV 94.1 (80.0-98.0) fL MCH 29.8 (27.0-32.0) pg MCHC 31.7 (31.0-37.0) g/dL RDW Std Deviation 46.5 (28.0-62.0) fl RDW Coeff of Jose 13 (11.0-15.0) % Plt Count 150 (150-400) K/uL MPV 10.70 (7.40-12.00) fL Neut % (Auto) 50.6 (48.0-80.0) % Lymph % (Auto) 27.2 (16.0-40.0) % [place] % (Auto) 11.9 (0.0-15.0) % Eos % (Auto) 9.3 H (0.0-7.0) % Baso % (Auto) 1.0 (0.0-1.5) % Neut # (Auto) 3.4 (1.4-5.7) K/uL Lymph # (Auto) 1.8 (0.6-2.4) K/uL [place] # (Auto) 0.8 (0.0-0.8) K/uL Eos # (Auto) 0.6 (0.0-0.7) K/uL Baso # (Auto) 0.1 (0.0-0.1) K/uL Nucleated RBC % 0.0 /100WBC Nucleated RBCs # 0 K/uL Sodium 144 (136-145) mmol/L Potassium 4.0 (3.5-5.1) mmol/L Chloride 108 H (98-107) mmol/L Carbon Dioxide 30.6 (21.0-32.0) mmol/L BUN 21 H (7.0-18.0) mg/dL Creatinine 0.7 (0.6-1.0) mg/dL Est Cr Clr Drug Dosing 47.05 mL/min Estimated GFR (MDRD) > 60.0 ml/min Glucose 88 (74-106) mg/dL Calcium 8.4 L (8.5-10.1) mg/dL Total Bilirubin 0.6 (0.2-1.0) mg/dL AST 29 (15-37) IU/L ALT 20 (14-63) IU/L Alkaline Phosphatase 49 (46-116) U/L Total Protein 5.1 L (6.4-8.2) g/dL Albumin 2.5 L (3.4-5.0) g/dL Globulin 2.6 (2.6-4.0) g/dL Albumin/Globulin Ratio 1.0 (0.9-1.6) CAMILO Results - Last 24 hrs: Microbiology 08/28/19 13:34 Urine Culture - Final Urine, Clean Catch MIXED BOB 10,000-100,000 CFU/ML Med Orders - Current: Current Medications Fluoxetine HCl (Prozac) 10 mg PO DAILY [facility] Last Admin: 08/30/19 09:14 Dose: 10 mg Sodium Chloride (Normal Saline) 500 mls @ 500 mls/hr IV ASDIRECTED [facility] Last Admin: 08/28/19 16:22 Dose: 500 mls/hr Pantoprazole Sodium 40 mg/ (Sodium Chloride) 10 mls @ 300 mls/hr IV Q12H [facility] Last Admin: 08/30/19 09:01 Dose: 300 mls/hr Levothyroxine Sodium (Levothyroxine) 112 mcg PO Q24H [facility] Last Admin: 08/30/19 07:27 Dose: 112 mcg Amiloride/Hydrochlorothiazide [Amiloride-Hctz 5-50 Mg] 0 0.5 each PO DAILY [facility] Last Admin: 08/30/19 09:14 Dose: 0.5 each Sodium Chloride (Saline Flush) 10 ml FLUSH ASDIRECTED PRN PRN Reason: Keep Vein Open Sodium Chloride (Saline Flush) 2.5 ml FLUSH ASDIRECTED PRN PRN Reason: Keep Vein Open Sucralfate (Carafate) 1 gm PO QIDACANDBED [facility] Last Admin: 08/30/19 07:25 Dose: 1 gm Discontinued Medications Docusate Sodium (Colace) 100 mg PO DAILY PRN PRN Reason: Constipation Fluoxetine HCl (Prozac) Confirm Administered Dose 10 mg .ROUTE .STK-MED ONE Stop: 08/29/19 08:55 Last Admin: 08/29/19 09:33 Dose: Not Given Lactated Ringer's (Ringers, Lactated) 1,000 mls @ 75 mls/hr IV ASDIRECTED [facility] Last Admin: 08/29/19 00:24 Dose: 75 mls/hr Iopamidol (Isovue Multipack-370 (76%)) 100 ml IVPUSH ONETIME STA Stop: 08/28/19 12:44 Last Admin: 08/28/19 13:01 Dose: 100 ml Levothyroxine Sodium (Levothyroxine) 112 mcg PO DAILY [facility] Last Admin: 08/29/19 08:59 Dose: 112 mcg Levothyroxine Sodium (Levothyroxine) Confirm Administered Dose 112 mcg .ROUTE .STK-MED ONE Stop: 08/29/19 08:55 Last Admin: 08/29/19 09:32 Dose: Not Given Pantoprazole Sodium (Protonix Iv) 40 mg IV Q12HR [facility] Last Admin: 08/28/19 20:37 Dose: 40 mg Pantoprazole Sodium (Protonix Iv) Confirm Administered Dose 40 mg .ROUTE .STK -MED ONE Stop: 08/29/19 08:55 Last Admin: 08/29/19 09:33 Dose: Not Given Amiloride/Hydrochlorothiazide [Amiloride-Hctz 5-50 Mg] 0 5 - 50 each PO DAILY [facility] Last Admin: 08/29/19 12:51 Dose: Not Given Polyethylene Glycol (Miralax) 17 gm PO DAILY PRN PRN Reason: Constipation <Walker Holden J - Last Filed: 08/31/19 13:34> Discharge Summary - Referral to Home Health Primary Care Physician: Gabriela Gutierrez DO - Patient Data Vitals - Most Recent: Last Vital Signs Temp 36.0 C L 08/30/19 11:45 Pulse 62 08/30/19 11:45 Resp 16 08/30/19 11:45 BP 178/86 H 08/30/19 11:45 Pulse Ox 96 08/30/19 11:45 Med Orders - Current: Current Medications Discontinued Medications Docusate Sodium (Colace) 100 mg PO DAILY PRN PRN Reason: Constipation Fluoxetine HCl (Prozac) 10 mg PO DAILY [facility] Last Admin: 08/30/19 09:14 Dose: 10 mg Fluoxetine HCl (Prozac) Confirm Administered Dose 10 mg .ROUTE .STK-MED ONE Stop: 08/29/19 08:55 Last Admin: 08/29/19 09:33 Dose: Not Given Sodium Chloride (Normal Saline) 500 mls @ 500 mls/hr IV ASDIRECTED [facility] Last Admin: 08/28/19 16:22 Dose: 500 mls/hr Lactated Ringer's (Ringers, Lactated) 1,000 mls @ 75 mls/hr IV ASDIRECTED [facility] Last Admin: 08/29/19 00:24 Dose: 75 mls/hr Pantoprazole Sodium 40 mg/ (Sodium Chloride) 10 mls @ 300 mls/hr IV Q12H [facility] Last Admin: 08/30/19 09:01 Dose: 300 mls/hr Iopamidol (Isovue Multipack-370 (76%)) 100 ml IVPUSH ONETIME STA Stop: 08/28/19 12:44 Last Admin: 08/28/19 13:01 Dose: 100 ml Levothyroxine Sodium (Levothyroxine) 112 mcg PO DAILY [facility] Last Admin: 08/29/19 08:59 Dose: 112 mcg Levothyroxine Sodium (Levothyroxine) Confirm Administered Dose 112 mcg .ROUTE .STK-MED ONE Stop: 08/29/19 08:55 Last Admin: 08/29/19 09:32 Dose: Not Given Levothyroxine Sodium (Levothyroxine) 112 mcg PO Q24H [facility] Last Admin: 08/30/19 07:27 Dose: 112 mcg Pantoprazole Sodium (Protonix Iv) 40 mg IV Q12HR [facility] Last Admin: 08/28/19 20:37 Dose: 40 mg Pantoprazole Sodium (Protonix Iv) Confirm Administered Dose 40 mg .ROUTE .STK -MED ONE Stop: 08/29/19 08:55 Last Admin: 08/29/19 09:33 Dose: Not Given Amiloride/Hydrochlorothiazide [Amiloride-Hctz 5-50 Mg] 0 5 - 50 each PO DAILY [facility] Last Admin: 08/29/19 12:51 Dose: Not Given Amiloride/Hydrochlorothiazide [Amiloride-Hctz 5-50 Mg] 0 0.5 each PO DAILY [facility] Last Admin: 08/30/19 09:14 Dose: 0.5 each Polyethylene Glycol (Miralax) 17 gm PO DAILY PRN PRN Reason: Constipation Sodium Chloride (Saline Flush) 10 ml FLUSH ASDIRECTED PRN PRN Reason: Keep Vein Open Sodium Chloride (Saline Flush) 2.5 ml FLUSH ASDIRECTED PRN PRN Reason: Keep Vein Open Sucralfate (Carafate) 1 gm PO QIDACANDBED [facility] Last Admin: 08/30/19 12:12 Dose: 1 gm - Free Text/Narrative Note: I have seen and examined the patient with the resident. I have discussed the findings and treatment plan with the resident. I agree with the assessment and plan as outlined in the following note.
== END 2019-08-30 12:15 | disposition home or self-care (01) ==
LOC: MW.ED 10:45 → MW.MS 13:59
PROVIDERS: ADMIT Internal Medicine; ATTEND Internal Medicine
DX: K92.1 Melena (principal); K57.31 Diverticulosis of large intestine without perforation or abscess with bleeding; I10 Essential (primary) hypertension; E03.9 Hypothyroidism, unspecified; M54.9 Dorsalgia, unspecified; G89.29 Other chronic pain; K44.9 Diaphragmatic hernia without obstruction or gangrene; E78.00 Pure hypercholesterolemia, unspecified; K59.09 Other constipation; M19.90 Unspecified osteoarthritis, unspecified site; F32.9 Major depressive disorder, single episode, unspecified; Z79.899 Other long term (current) drug therapy; Z79.82 Long term (current) use of aspirin; Z98.890 Other specified postprocedural states; Z90.49 Acquired absence of other specified parts of digestive tract; Z87.891 Personal history of nicotine dependence
CPT/HCPCS: 36415; 71045; 74178; 80053; 81001; 83690; 84484; 85014; 85018; 85025; 86850; 86900; 86901; 87086; 93005; 99285; A9270; C9113; J7030; J7050; J7120; Q9967; 96361; 96374; 96376; G0378